=== PATIENT | female | born 1980 | race African-American/Black ===

== ENCOUNTER 2022-06-10 19:22 | Emergency (ER) | payer OTHER ==
[2022-06-10 19:46] VITALS: BP 117/72; PULSE 79; RESP 20; TEMP 98.3; BMI 28.4
[2022-06-10 22:12] LABS: BASO % 0.6 % (0-2.0); EOS % 2.5 % (0-4.5); HEMATOCRIT 29.2 % (32.4-45.2); HEMOGLOBIN 9.7 GM/dL (10.7-15.3); MCH 26.4 pg (25.7-33.7); MCHC 33.1 g/dl (32.0-36.0); MEAN CELL VOLUME 79.9 fl (80-96); MEAN PLT VOLUME 7.5 fl (7.5-11.1); MONO % 8.9 % (3.8-10.2); PLATELET COUNT 308 10^3/uL (134-434); RBC 3.66 M/mm3 (3.60-5.2); RDW 15.2 % (11.6-15.6); WHITE BLOOD COUNT 5.5 K/mm3 (4.0-10.0)
[2022-06-10 22:21] LABS: INR 1.09 (0.83-1.09); PROTHROMBIN TIME (PATIENT) 12.6 SEC (9.7-13.0)
[2022-06-10 22:23] LABS: ACTIVATED PTT 31.2 SECONDS (25.2-36.5)
[2022-06-10 22:33] LABS: ALBUMIN 3.5 g/dl (3.4-5.0); BLOOD UREA NITROGEN 11.4 mg/dL (7-18); CALCIUM 8.7 mg/dL (8.5-10.1); MAGNESIUM 1.9 mg/dL (1.8-2.4)
[2022-06-10 22:38] LABS: BILIRUBIN,TOTAL 0.3 mg/dL (0.2-1); TOT PROT 7.2 g/dl (6.4-8.2)
[2022-06-10 22:45] LABS: CREATININE 0.5 mg/dL (0.55-1.3)
== END 2022-06-11 00:35 | disposition home or self-care (01) ==
LOC: JER 19:22
DX: F43.0 Acute stress reaction (principal); R42 Dizziness and giddiness
CPT/HCPCS: 36415; 71275-TC; 80053; 83735; 84484; 84703; 85025; 85379; 85610; 85730; 93005; 93010; 99285-25; Q9967

== ENCOUNTER 2024-08-26 17:48 | Emergency (ER) | payer BC, OTHER ==
[2024-08-26 18:02] VITALS: BP 113/67; PULSE 87; RESP 20; TEMP 98.9; BMI 33.0
== END 2024-08-26 20:10 | disposition home or self-care (01) ==
LOC: JER 17:48
DX: Z76.0 Encounter for issue of repeat prescription (principal)
CPT/HCPCS: 99281-25

== ENCOUNTER 2024-09-02 15:25 | Emergency (ER) | payer BC ==
[2024-09-02 15:35] VITALS: BP 105/58; PULSE 85; RESP 20; TEMP 98.8; BMI 31.9
[2024-09-02] MEDS ORDERED: ALPRAZolam 0.25 MG TABLET ONE (16:34)
[2024-09-02] MEDS: ALPRAZolam 0.25 MG TABLET PO ONE (16:37)
== END 2024-09-02 16:30 | disposition home or self-care (01) ==
LOC: JERFT 15:25
DX: F41.9 Anxiety disorder, unspecified (principal); Z76.0 Encounter for issue of repeat prescription
CPT/HCPCS: 99283-25